=== PATIENT | female | born 1990 | race Two or more races ===

== ENCOUNTER 2024-07-26 09:09 | Outpatient (RCR) | payer MEDICAID, SELFPAY ==
--- NOTE | 2024-06-28 09:24 | XR_ITS ---
Examination: Biophysical profile, ultrasound Date and time of exam: June 28, 2024 0947 hours INDICATIONS: Diagnosis advanced maternal age Technique: Multiple transabdominal sonographic images of the pelvis abdomen obtained. Attention is directed to the breathing movement, gross body movement, amniotic fluid volume and tone. Findings: Amniotic fluid index 8.4 cm Total biophysical profile is 8 of 8. breathing movement is 2. Gross body movement is 2. tone is 2. Qualitative amniotic fluid volume is 2 Impression: Biophysical profile is 8 of 8.
[2024-06-28 10:11] VITALS: BP 123/65; PULSE 68; RESP 16; TEMP 36.7
--- NOTE | 2024-07-05 09:21 | XR_ITS ---
Examination: Biophysical profile, ultrasound Date and time of exam: July 05, 2024 0925 hrs. Indications: Diagnosis advanced maternal age Technique: Multiple transabdominal sonographic images of the pelvis abdomen obtained. Attention is directed to the breathing movement, gross body movement, amniotic fluid volume and tone. Findings: Amniotic fluid index 12.9 cm Total biophysical profile is 8 of 8. breathing movement is 2. Gross body movement is 2. tone is 2. Qualitative amniotic fluid volume is 2 Impression: Biophysical profile is 8 of 8.
[2024-07-05 09:53] VITALS: BP 103/76; PULSE 90; RESP 16; TEMP 37.1
--- NOTE | 2024-07-12 09:14 | XR_ITS ---
Examination: Biophysical profile, ultrasound Date and time of exam: July 12, 2024 0951 hours INDICATIONS: Diagnosis advanced maternal age Technique: Multiple transabdominal sonographic images of the pelvis abdomen obtained. Attention is directed to the breathing movement, gross body movement, amniotic fluid volume and tone. Findings: Amniotic fluid index 11.2 cm Total biophysical profile is 8 of 8. breathing movement is 2. Gross body movement is 2. tone is 2. Qualitative amniotic fluid volume is 2 Impression: Biophysical profile is 8 of 8.
[2024-07-12 10:09] VITALS: BP 104/59; PULSE 69; RESP 16; TEMP 36.8
--- NOTE | 2024-07-19 09:20 | XR_ITS ---
Examination: Biophysical profile, ultrasound Date and time of exam: July 19, 2024 0931 hours INDICATIONS: Advanced maternal age diagnosis Technique: Multiple transabdominal sonographic images of the pelvis abdomen obtained. Attention is directed to the breathing movement, gross body movement, amniotic fluid volume and tone. Findings: Amniotic fluid index 8.4 cm Total biophysical profile is 8 of 8. breathing movement is 2. Gross body movement is 2. tone is 2. Qualitative amniotic fluid volume is 2 Impression: Biophysical profile is 8 of 8.
[2024-07-19 09:50] VITALS: BP 112/64; PULSE 74; RESP 16; TEMP 37
--- NOTE | 2024-07-26 09:14 | XR_ITS ---
Examination: Biophysical profile, ultrasound Date and time of exam: July 26, 2024 0919 hours INDICATIONS: Diagnosis advanced maternal age Technique: Multiple transabdominal sonographic images of the pelvis abdomen obtained. Attention is directed to the breathing movement, gross body movement, amniotic fluid volume and tone. Findings: Amniotic fluid index 9.6 cm Total biophysical profile is 8 of 8. breathing movement is 2. Gross body movement is 2. tone is 2. Qualitative amniotic fluid volume is 2 Impression: Biophysical profile is 8 of 8.
[2024-07-26 09:47] VITALS: BP 109/67; PULSE 88; RESP 16; TEMP 36.5
== END 2024-07-26 23:59 | disposition home or self-care (01) ==
LOC: S4S1 09:09
PROVIDERS: PCP Family Medicine; Referring Provider Nurse Practitioner Women's Health; Visit Provider Nurse Practitioner Women's Health
DX: O09.523 Supervision of elderly multigravida, third trimester (principal); Z3A.38 38 weeks gestation of pregnancy
CPT/HCPCS: 59025; 76819

== ENCOUNTER 2024-07-31 06:23 | Inpatient (IN) | payer MEDICAID, SELFPAY ==
[2024-07-31] VITALS (104 sets, daily range): BP systolic 101–164; BP diastolic 51–86; PULSE 60–121; RESP 17–99; TEMP 36.6–36.9; O2SAT 89–100; BMI 43.0
[2024-07-31 07:10] LABS: ROM Kit Lot # 57807112; ROM Swab Mixed By: PC; Rupture of Fetal Membranes Positive (Negative); Swb Mxed in Solvent 1 min? Yes
[2024-07-31 09:28] LABS: Basophils % (Auto) 1 % (0-2.5); Eosinophils # (Auto) 0.2 Thou/mm3 (0.0-0.5); Eosinophils % (Auto) 2 % (0-10); Hematocrit 35.6 % (36.0-46.0); Hemoglobin 11.9 g/dL (12.0-16.0); Immature Granulocytes % (Auto) 0 % (0-0); Immature Granulocytes Auto 0.02 Thou/mm3 (0.00-0.00); Lymphocytes # (Auto) 2.3 Thou/mm3 (1.0-4.8); Lymphocytes % (Auto) 28 % (10-50); Mean Corpuscular HGB Conc 33.4 g/dl (31.0-37.0); Mean Corpuscular Hemoglobin 30.8 pg (25.0-35.0); Mean Corpuscular Volume 92 fL (80-100); Monocytes # (Auto) 0.4 Thou/mm3 (0.0-0.8); Monocytes % (Auto) 5 % (0-12); Neutrophils # (Auto) 5.3 Thou/mm3 (1.8-7.7); Neutrophils % (Auto) 64 % (37-80); Nucleated Red Blood Cell % 0 /100 WBC (0); Platelet Count 148 Thou/mm3 (140-440); RDW Standard Deviation 46.5 fL (36.4-46.3); Red Blood Count 3.86 Miln/mm3 (4.00-5.20); White Blood Count 8.2 Thou/mm3 (3.6-11.0)
[2024-07-31] MEDS: RINGERS LACTATED 1000 ML 1,000 ML 100 ML IV ×4 (10:02→17:12)
[2024-07-31 10:07] LABS: Syphilis Nonreactive (Nonreactive)
[2024-07-31] MEDS: MISOPROSTOL 50 mCg TABLET PO (11:05)
--- NOTE | 2024-07-31 12:05 | ESHP_ITS ---
Documentation for date of: 07/31/24 OB Labor/Induct. HPI History of Present Illness Chief complaint: Patient ruptured her membranes at 6 AM today : 3 Para: 1 Term pregnancies: 1 pregnancies: 0 Living children: 1 History of Abortions: Spontaneous and Elective: 1 History of Vaginal deliveries: 1 History of sections: No History of : No Date of last menstrual period: 11/01/23 ALEJANDRO: 08/07/24 Gestational Age (weeks): 39 Gestational Age (days): 0 Gestational age based on last menstrual period: 39 History of present illness: Patient is a 34-year-old -0-1-1 at 39 weeks who presents with ruptured membranes at 6 in the morning clear fluid. Patient is 3 cm dilated 50-2 posterior care is up-to-date on the chart with [facility]. History of Present Dating criteria: LMP confirmed by 1st trimester US Adequate Care: Yes Ultrasounds: normal mid trimester US Obstetrical complications: none Medical complications: other (Maternal morbid obesity with a BMI of 43) Labs Maternal Blood Type: A Pos Labs: Positive: Rubella Titre and Negative: RPR, Hepatitis B, HIV, Chlamydia, Gonorrhea and Group Beta Strep Review of Systems Review of Systems Narrative Review of Systems: Patient reports we are liquid ruptured at 6 AM today no bleeding good movement no regular uterine contractions Past Medical History Surgical History SURGICAL: Negative Section Meds Home Medications and Allergies Home Medications ?Medication ?Instructions ?Recorded ?Confirmed ?Type vit no.95-ferrous 1 tab PO QDAY 12/26/23 05/0 07/22 History fumarate 28 mg-folic acid 800 mcg tablet () ferrous sulfate 325 mg (65 mg mg 07/31/24 History iron) tablet Allergies Allergy/AdvReac Type Severity Reaction Status Date / Time No Known Allergies Allergy Verified 07/31/24 06:34 OB Exam Physical Exam Vital signs: Temp Pulse Resp BP Pulse Ox 98.4 F 64 18 133/66 H 99 07/31/24 06:47 07/31/24 11:56 07/31/24 06:47 07/31/24 11:56 07/31/24 06:47 Routine Abdominal Exam Abdominal: Present soft Comments: Obese. 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 Cytotec p.o. induction. Patient declined internals. She declined Pitocin until she has epidural. She declines an FSE until she gets an epidural. (3) Full-term premature rupture of membranes Qualifiers: PROM onset of labor timing: onset of labor within 24 hours of rupture Q ualified Code(s): O42.02 - Full-term premature rupture of membranes, onset of labor within 24 hours of rupture
[2024-07-31 14:41] LABS: Amphetamine/Metham Scrn,Ur OB Negative (Negative); Benzoylecgonine Screen, Ur OB Negative (Negative); Opiate Screen,Urine OB Negative (Negative); THC Screen,Urine OB Negative (Negative)
[2024-07-31] MEDS: OXYTOCIN in NS 30 units 30 UNIT/500 ML BAG IV (15:48)
[2024-07-31] MEDS: LIDOCAINE HCL 1% 20 ML VIAL INFL (19:11)
[2024-07-31] MEDS: OXYTOCIN in NS 20 units 20 UNIT/1,000 ML BAG 125 UNIT IV (19:37)
[2024-07-31] MEDS: BENZO/LANO/ALOE (Dermoplast) 60 GM CAN 1 SPRAY TOP (19:38)
--- NOTE | 2024-07-31 19:46 | OBDSUM_ITS ---
Data (Marquez) Data Hx Section: No Maternal Blood Type: A Pos Rubella Titre: Positive RPR: Non-reactive Labs: Negative: RPR, Hepatitis B, HIV, Chlamydia, Gonorrhea and Group Beta Strep : 3 Term: 1 : 0 Livin Abortions: Spontaneous & Theraputic: 1 Delivery Data (Mraquez) Labor Data Initiation of labor: Spontaneous Induction/Augmentation Agent: Cytotec-PO (50 mcg x 2 orally followed by low-dose Pitocin up to 2 milliunits/min) and Pitocin ROM date: 07/31/24 ROM time: 06:10 Amniotic membrane rupture type: Spontaneous Amniotic fluid description: Clear Delivery Data EDC: 08/07/24 EDC calculated by:: LMP/early US confirmation Date of arrival to unit: 07/31/24 Time of arrival to unit: 07:30 Onset of labor date: 07/31/24 Onset of labor time: 12:00 Complete dilation date: 07/31/24 Complete dilation time: 19:03 delivery date: 07/31/24 delivery time: 19:09 Gestational age (weeks): 39 Gestational age (days): 0 Placenta delivery date: 07/31/24 Placenta delivery time: 19:19 Stage 1 total time: Labor - Stage 1 Duration 7 hours and 3 minutes Length stage 2 (minutes): 10 Length stage 3 (minutes): 10 Delivered by: Adry Paz ([facility]) Delivery nurse: Sancho Hernadnez RN [place] nurse: Debi Galarza RN Exceptional Student Education Teacher at delivery: No Support person(s) at delivery: spouse Delivery Method Delivery: Vaginal Presentation: Vertex Position: OA Anesthesia Type Primary Anesthesia: Epidural Secondary Anesthesia: Not Applicable (Local lidocaine for repair) Delivery Room Medications Other Intrapartum Medications: No Post Delivery Medications N/A: No Placenta Placenta Delivery: Spontaneous Placenta Cultures Obtained: No Placenta Sent for Examination: No Cord Sample: Cord Blood Obtained Episiotomy Episiotomy: None Lacerations #1: Perineal: 1st degree Perineal repair Sutures used for repair: other (2-0 chromic) EBL Estimated blood loss (ml): 100 Umbilical Cord Placenta/Cord Complication: Other (Short umbilical cord) Umbilical Vessels: 3 Nuchal Cord: None Body Cord: None Additional Procedures The patient is a 34-year-old -0-1-1 all care uncomplicated with [facility] who presented to labor and delivery around 7:30 in the morning 07/31/2024 with ruptured membranes. She stated she ruptured her bag of water, clear fluid at 6 AM that morning. She was admitted. She was 3 cm dilated 50% effaced -2 station. Patient wanted an epidural placed before she got any augmentation and had an epidural placed and then had 50 mcg of Cytotec placed x 2 and went into kick into labor. She had some decelerations during the day had an IUPC placed and an amnioinfusion. She went on to progress to complete by about 7:00 PM and pushed about 10 minutes delivering a liveborn male at 7:09 PM. Findings liveborn male in the JENNIFER presentation with no nuchal cord or meconium the umbilical cord however was quite short. Apgars were 8 and 9 weight was 7 pounds 6 ounces. The placenta was complete spontaneous grossly normal delivering approximately 10 minutes after the baby delivered. Patient had a first-degree perineal laceration repaired in a standard fashion using 2-0 chromic. Complications were none. Condition both mom and were in stable condition in the delivery room. EBL was 100 cc Complications Complications: None Data (Marquez) Data order: 1 's gender: Male weight (gms): 3335 g Weight (pounds): 7 lbs and 5.6 ozs K[place]al length: 46.36 cm 1 minute: 8 5 minutes: 9
[2024-07-31] MEDS: IBUPROFEN TAB 400 MG TABLET 800 MG PO (20:15)
[2024-08-01] VITALS (7 sets, daily range): BP systolic 106–135; BP diastolic 65–87; PULSE 82; RESP 17–18; TEMP 36.3–36.8; O2SAT 97–98
[2024-08-01 02:07] LABS: Basophils % (Auto) 0 % (0-2.5); Eosinophils % (Auto) 0 % (0-10); Hematocrit 25.9 % (36.0-46.0); Immature Granulocytes % (Auto) 1 % (0-0); Immature Granulocytes Auto 0.07 Thou/mm3 (0.00-0.00); Lymphocytes # (Auto) 1.6 Thou/mm3 (1.0-4.8); Lymphocytes % (Auto) 13 % (10-50); Mean Corpuscular HGB Conc 34.7 g/dl (31.0-37.0); Mean Corpuscular Hemoglobin 30.6 pg (25.0-35.0); Mean Corpuscular Volume 88 fL (80-100); Monocytes # (Auto) 0.7 Thou/mm3 (0.0-0.8); Monocytes % (Auto) 6 % (0-12); Neutrophils # (Auto) 10.3 Thou/mm3 (1.8-7.7); Neutrophils % (Auto) 81 % (37-80); Nucleated Red Blood Cell % 0 /100 WBC (0); Platelet Count 124 Thou/mm3 (140-440); RDW Standard Deviation 43.2 fL (36.4-46.3); Red Blood Count 2.94 Miln/mm3 (4.00-5.20); White Blood Count 12.7 Thou/mm3 (3.6-11.0)
[2024-08-01] MEDS: IBUPROFEN TAB 400 MG TABLET 800 MG PO ×2 (07:50→19:49)
--- NOTE | 2024-08-01 09:41 | ESDS_ITS ---
DS: Providers Provider Date of admission: 07/31/24 07:48 Primary care physician: Lauro Caicedo MD Admitting Provider: Rupinder Lockwood CNM Attending Provider on Admission: Adry Paz MD ([facility]) Consults: 07/31/24 19:44 Referral Routine Comment: Attending Provider on DC: Rupinder Lockwood CNM Discharging Provider: Rupinder Lockwood CNM Anticipated date of discharge: 08/01/24 DS: Diagnosis Discharge Diagnosis (1) Normal spontaneous vaginal delivery: Status: Acute (2) Encounter for care of lactating mother: Status: Acute (3) Supervision of high risk in third trimester: Status: Acute Problem List Completed Was Problem List Reviewed/Reconciled?: Yes Summary/Hosp Course Brief History: Patient is a 34-year-old -0-1-1 at 39 weeks who presents with ruptured membranes at 6 in the morning clear fluid. Patient is 3 cm dilated 50-2 posterior care is up-to-date on the chart with [facility]. 07/31/24: The patient is a 34-year-old -0-1-1 all care uncomplicated with [facility] who presented to labor and delivery around 7:30 in the morning 07/31/2024 with ruptured membranes. She stated she ruptured her bag of water, clear fluid at 6 AM that morning. She was admitted. She was 3 cm dilated 50% effaced -2 station. Patient wanted an epidural placed before she got any augmentation and had an epidural placed and then had 50 mcg of Cytotec placed x 2 and went into kick into labor. She had some decelerations during the day had an IUPC placed and an amnioinfusion. She went on to progress to complete by about 7:00 PM and pushed about 10 minutes delivering a liveborn male at 7:09 PM. Findings liveborn male in the JENNIFER presentation with no nuchal cord or meconium the umbilical cord however was quite short. Apgars were 8 and 9 weight was 7 pounds 6 ounces. The placenta was complete spontaneous grossly normal delivering approximately 10 minutes after the baby delivered. Patient had a first-degree perineal laceration repaired in a standard fashion using 2-0 chromic. Complications were none. Condition both mom and infant were in stable condition in the delivery room. EBL was 100 cc 5/5/25: day 1. Patient is stable and afebrile doing well. Denies dizziness shortness of breath. Ambulating to the bathroom. Passing gas. No bowel movement yet. Breast-feeding infant. Complains of some cramping. Discharge instructions given. Patient to follow-up with Rupinder Lockwood CNM in 3 weeks Peripartum Data Delivery Method: Normal Vaginal Delivery Episiotomy Description: None Laceration Description: yes and see Delivery Summary complications: none [place] 1: Gender: Male Disposition of : home Status at Discharge Cognitive/behavioral status at discharge: Alert and oriented x 3 Functional status at discharge: independent ambulation Overall status at discharge: patient is progressing back to baseline Time Spent with Patient Time attestation: Total time spent providing and/or coordinating discharge services: Time spent: Greater than 30 minutes Exam Vital Signs Temp Pulse Resp BP Pulse Ox O2 Del Method 98.2 F 70 17 135/87 H 97 Room Air 08/01/24 07:34 07/31/24 21:18 08/01/24 07:34 08/01/24 07:34 08/01/24 07:34 08/01/24 07:34 Constitutional Constitutional: no acute distress Routine HEENT Exam Head: Present normocephalic and atraumatic Eye: Present EOMI, PERRL and normal accommodation ENT: Present mucous membranes moist Routine Neck Exam Neck: Present full ROM Routine Respiratory Exam Respiratory: Present chest non-tender, lungs clear, normal breath sounds and no resp distress Routine Cardiovascular Exam Cardiovascular: Present RRR Routine Abdominal Exam Abdominal: Present soft and normoactive bowel sounds; Absent tenderness or distended Comments: Uterus nontender Fundus firm Routine Exam Patient deferred: external exam Routine Extremities Exam Extremities: Present full ROM, pulses intact and normal capillary refill; Absent calf tenderness or tenderness Routine Back/Spine/Pelvis Exam Back/Spine: Present full ROM Routine Skin Exam Skin: Present intact, dry and warm Routine Neurological Exam Neurological: Present alert, oriented X3 and CN II-XII intact Routine Psychiatric Exam Psychiatric: Present normal affect and normal thought process Discharge Plan Plan Patient Disposition: HOME (Self Care) Patient condition on transfer: Stable Prescriptions/Referrals Prescriptions/Med Rec: New ibuprofen 800 mg tablet 800 mg PO Q6H MDD 4 PRN (Reason: pain) Qty: 90 0RF docusate sodium [Colace] 100 mg capsule 100 mg PO BID Qty: 60 0RF lanolin 50 % ointment 1 applic topical TID PRN (Reason: skin irritation) Qty: 15 0RF Continued pantoprazole [Protonix] 40 mg tablet,delayed release (DR/EC) 40 mg PO QDAY Qty: 14 0RF PNV cmb#95-ferrous fumarate-FA [] 28 mg iron- 800 mcg tablet 1 tab PO QDAY Patient Comments: TAKE 1 TABLET BY MOUTH EVERY DAY ferrous sulfate 325 mg (65 mg iron) tablet Patient Comments: TAKE 1 TABLET BY MOUTH 2 TIMES A DAY Referrals: Lauro Caicedo MD [Primary Care Provider] - Patient/Caregiver Discharge Instructions Meds to Beds: No Discharge Activity: activity as tolerated Other Discharge Activity Instructions:: Follow-up with Rupinder Lockwood CNM in 3 weeks Education Materials: After a Vaginal , : Caring for Yourself Print Language: Luxembourgish Stand Alone Forms: Yelena Award Info., Patient Portal Info Letter Discharge Order Discharge Orders: Discharge (Routine); Ordered 08/01/24 Ordered By: Rupinder Lockwood Planned Discharge Date 08/01/24
== END 2024-08-01 22:08 | disposition home or self-care (01) | DRG 560 ==
LOC: S4SX 08:09 → S4NX 21:53
PROVIDERS: Admitting Provider Nurse Practitioner Women's Health; PCP Family Medicine; Visit Provider Obstetrics & Gynecology
DX: O42.02 Full-term premature rupture of membranes, onset of labor within 24 hours of rupture (principal); O69.3XX0 Labor and delivery complicated by short cord, not applicable or unspecified; O70.0 First degree perineal laceration during delivery; O99.214 Obesity complicating childbirth; Z37.0 Single live birth; E66.01 Morbid (severe) obesity due to excess calories; Z3A.39 39 weeks gestation of pregnancy
CPT/HCPCS: 36415; 59025; 59409; 80307; 84112; 85025; 86780; 86850; 86900; 86901; J2175; J2590; J2795; J3010; J3490; J7120; A9270

== ENCOUNTER 2024-10-23 10:54 | Emergency (ER) | payer MEDICAID, SELFPAY ==
[2024-10-23 10:56] VITALS: BMI 37.0
--- NOTE | 2024-10-23 11:01 | EKG_ITS ---
[facility] Test Date: 2024-10-23 Pat Name: QUAN REYES Department: Room: - Gender: Female Repeat Chief: : 1990 Requested By: Soni Syed Order Number: [id number] Reading MD: Soni Syed Measurements Intervals [place] Rate: 72 P: 45 SC: 146 QRS: 23 QRSD: 82 T: 31 QT: 364 QTc: 399 Interpretive Statements SINUS RHYTHM LOW QRS VOLTAGE IN PRECORDIAL LEADS [QRS DEFLECTION < 1.0 mV IN CHEST LEADS] Compared to ECG 02/13/2023 14:56:58 No significant changes /store/S0/[id number].pdf
--- NOTE | 2024-10-23 11:02 | EDNOTE_ITS ---
ED Back Injury Pain RME/HPI General Chief Complaint: Back Pain/Injury Stated Complaint: PAIN IN MIDDLE UPPER BACK X3 DAYS Time Seen by Provider: 10/23/24 10:58 Source: patient Arrival date/time: 10/23/24 10:54 Limitations: no limitations RME / HPI RME / HPI Narrative: 34-year-old female with a history of anxiety is here today with a 5-day history of low back ache. She denies any injuries. She has no changes in her gait. She denies any abdominal pain, nausea, vomiting. She has no rectal paresthesias. She has no changes in urination or bowel movements. She states she went to see her primary doctor for this, she was prescribed Robaxin, but she is wondering if it is making her anxiety worse. She has no other acute complaints or concerns. Related Data Home Medications ?Medication ?Instructions ?Recorded ?Confirmed vit no.95-ferrous 1 tab PO QDAY 12/26/23 05/0 07/22 fumarate 28 mg-folic acid 800 mcg tablet () ferrous sulfate 325 mg (65 mg mg 07/31/24 iron) tablet Previous Rx's ?Medication ?Instructions ?Recorded pantoprazole 40 mg tablet,delayed 40 mg PO QDAY #14 ta bs 02/13/23 release (Protonix) docusate sodium 100 mg capsule 100 mg PO BID #60 caps 08/01/24 (Colace) ibuprofen 800 mg tablet 800 mg PO Q6H PRN pain #90 t abs 08/01/24 lanolin 50 % topical ointment 1 applic topical TID PRN skin 08/01/24 irritation #15 tubes Allergies Allergy/AdvReac Type Severity Reaction Status Date / Time No Known Allergies Allergy Verified 10/23/24 11:00 Review of Systems Review of Systems Systems Reviewed: All systems reviewed, normal except as documented ED Exam General Limitations: Present no limitations General appearance: Present alert and anxious Head Head exam: Present atraumatic Eye Eye exam: Present normal appearance, PERRL and EOMI ENT ENT exam: Present normal exam, normal oropharynx and mucous membranes moist Neck Neck exam: Present normal inspection, full ROM and trachea midline Chest Chest inspection: Present normal inspection and symmetric chest wall rise Respiratory Respiratory exam: Absent respiratory distress, accessory muscle use or prolonged expiratory phase Cardiovascular Cardiovascular exam: Present regular rate and normal rhythm Abdominal Exam Abdominal exam: Present soft; Absent distention or guarding Extremities Exam Extremities exam: Present normal inspection and full ROM Back Exam Back exam: Present normal inspection and full ROM Neurological Exam Neurological exam: Present alert and oriented X3 Psychiatric Psychiatric exam: Present normal affect and normal mood Skin Skin exam: Present warm, dry, intact and normal color Course Quality Measures none Orders Category Date Time Status EKG (ED ONLY) *Do not use* NOW Care 10/23/24 11:01 Completed EKG (ED Only) Stat Exams 10/23/24 11:01 Draft CBC Stat Lab 10/23/24 11:15 Completed CMP [Comprehensive Metabolic Panel] Stat Lab 10/23/24 11:15 Completed HCG,Qualitative Serum Stat Lab 10/23/24 11:15 Completed UA, C/S IF [Urinalysis, C/S if Indicated] Stat Lab 10/23/24 11:00 Completed Vital Signs Vital signs: Vital Signs Temperature 98.6 F 10/23/24 11:14 Pulse Rate 76 10/23/24 11:14 Respiratory Rate 18 10/23/24 11:14 Blood Pressure 142/70 H 10/23/24 11:14 Pulse Oximetry (%) 97 10/23/24 11:14 Oxygen Delivery Method Room Air 10/23/24 11:14 Back Pain / Injury MDM Narrative MDM Narrative:: 34-year-old female with a history of anxiety is here today with a 5-day history of low back ache. She denies any injuries. She has no changes in her gait. She denies any abdominal pain, nausea, vomiting. She has no rectal paresthesias. She has no changes in urination or bowel movements. She states she went to see her primary doctor for this, she was prescribed Robaxin, but she is wondering if it is making her anxiety worse. She has no other acute complaints or concerns. On exam, patient is anxious appearing. She is self ambulating with a stable gait. She has no assistance with walking. She wonders about kidney function. She is on her menstrual cycle. Her CBC, metabolic panel, are unremarkable. Urinalysis reveals hematuria this consistent with her menses. This was discussed in detail with her. She will continue her current therapies. Follow- up with her doctor as needed. Return for any worsening or emergent changes. Patient data External records reviewed:: None Clinical information provided by:: patient Social determinants that could affect healthcare access:: none Patient has the following chronic illnesses:: Anxiety How is presenting disease/condition affected by chronic disease/condition?: uneffected by Evaluation data The following diagnostics were reviewed and interpreted by me:: lab results Lab and/or radiology exams considered but not ordered:: n/a Interpretation Summary: Hematuria secondary to her menstrual cycle Medications / Prescriptions Medications or Prescriptions considered but not ordered:: n/a Medication administrations:: n/a Consultations Consultation(s) initiated? (list below): No Diagnosis Differential diagnosis back pain/injury: strain of lumbar region, pyelonephritis and thoracic back pain Most likely diagnosis given after review of the tests above:: Lumbago Admission Indicated Admission indicated?: not indicated Admission Request Was there a request for admission?: No Disposition Plan Disposition Plan: Discharge Discharge Attestation Discharge Attestation: The patient and all family members were given an opportunity to ask questions and understood the discharge instructions. Discharge instructions specifically effects, indications for sooner follow up or return to the emergency department, and the expected course of current diagnosis. Patient condition: Stable Discharge Plan Plan Patient Disposition: HOME (Self Care) Patient condition on transfer: Stable Prescriptions/Referrals Prescriptions/Med Rec: No Action pantoprazole [Protonix] 40 mg tablet,delayed release (DR/EC) 40 mg PO QDAY Qty: 14 0RF PNV no.95-ferrous fumarate-FA [] 28 mg iron- 800 mcg tablet 1 tab PO QDAY Patient Comments: TAKE 1 TABLET BY MOUTH EVERY DAY ferrous sulfate 325 mg (65 mg iron) tablet Patient Comments: TAKE 1 TABLET BY MOUTH 2 TIMES A DAY ibuprofen 800 mg tablet 800 mg PO Q6H MDD 4 PRN (Reason: pain) Qty: 90 0RF docusate sodium [Colace] 100 mg capsule 100 mg PO BID Qty: 60 0RF lanolin 50 % ointment 1 applic topical TID PRN (Reason: skin irritation) Qty: 15 0RF Referrals: Lauro Caicedo MD [Primary Care Provider] - In 1 week Problem List Clinical Impression: Lumbago Patient/Caregiver Discharge Instructions Education Materials: ED Back Care Tips Additional Instructions: - Continue your current therapies. Contact your primary doctor to schedule close follow-up appointment. - Return to the emergency room for any fevers, changes in your gait, changes and bowel moods or urination, or rectal paresthesias. Print Language: [place] Stand Alone Forms: Yelena Award Info., Patient Portal Info Letter
[2024-10-23 11:14] VITALS: BP 142/70; PULSE 76; RESP 18; TEMP 37; O2SAT 97
[2024-10-23 11:38] LABS: Collection Type, Urine Voided
[2024-10-23 11:39] LABS: Basophils # (Auto) 0.0 Thou/mm3 (0.0-0.2); Basophils % (Auto) 0 % (0-2.5); Eosinophils # (Auto) 0.2 Thou/mm3 (0.0-0.5); Eosinophils % (Auto) 3 % (0-10); Hematocrit 37.6 % (36.0-46.0); Hemoglobin 11.6 g/dL (12.0-16.0); Immature Granulocytes Auto 0.02 Thou/mm3 (0.00-0.00); Lymphocytes # (Auto) 1.9 Thou/mm3 (1.0-4.8); Lymphocytes % (Auto) 28 % (10-50); Mean Corpuscular HGB Conc 30.9 g/dl (31.0-37.0); Mean Corpuscular Hemoglobin 26.5 pg (25.0-35.0); Mean Corpuscular Volume 86 fL (80-100); Monocytes # (Auto) 0.4 Thou/mm3 (0.0-0.8); Monocytes % (Auto) 5 % (0-12); Neutrophils # (Auto) 4.4 Thou/mm3 (1.8-7.7); Neutrophils % (Auto) 64 % (37-80); Nucleated Red Blood Cell # 0.00 Thou/mm3 (0.00-0.00); Nucleated Red Blood Cell % 0 /100 WBC (0); Platelet Count 226 Thou/mm3 (140-440); RDW Standard Deviation 40.3 fL (36.4-46.3); Red Blood Count 4.37 Miln/mm3 (4.00-5.20); White Blood Count 6.9 Thou/mm3 (3.6-11.0)
[2024-10-23 11:50] LABS: Alanine Aminotransferase 14 U/L (10-49); Albumin, Serum 4.4 gm/dL (3.5-5.0); Albumin/Globulin Ratio 1.7 (1.2-2.2); Alkaline Phosphatase 114 U/L (46-116); Anion Gap 9 (7-16); Aspartate Amino Transferase 17 U/L (0-34); BUN/Creatinine Ratio 11 Ratio (12-20); Bilirubin,Total 0.4 mg/dL (0.3-1.2); Blood Urea Nitrogen 11 mg/dL (9-23); Calcium 9.1 mg/dL (8.3-10.6); Calcium (Corrected) 9.1 mg/dL (8.5-10.1); Carbon Dioxide 26.2 mMol/L (20.0-31.0); Chloride 108 mMol/L (98-107); Creatinine (Component) 1.0 mg/dL (0.6-1.3); Estimated Creatinine Clearance 76.6 mL/min (>60); Globulin 2.6 gm/dL (2.3-3.5); Glucose 104 mg/dL (74-106); Osmolality,Calculated 284 (275-295); Potassium 3.7 mMol/L (3.4-5.1); Sodium 143 mMol/L (136-145); Total Protein 7.0 gm/dL (5.7-8.2); eGFR > 60 See Note
[2024-10-23 11:51] LABS: HCG,Qualitative Serum Negative
[2024-10-23 12:22] LABS: Bilirubin,Urine Negative (Negative); Blood,Urine 3+ (Negative); Clarity,Urine Turbid (Clear/Hazy); Color,Urine Yellow (Lt Yel-Yel); Culture Indicated,Urine Not Indicated; Glucose, Urine Negative (Negative); Ketones,Urine Negative (Negative); Leukocyte Esterase,Urine Positive (Negative); Nitrite,Urine Negative (Negative); PH,Urine 5.5 (5.0-7.0); Protein,Urine Trace (Neg - Trace); RBC,Urine 1829 /hpf (0-3); Specific Gravity,Urine 1.025 (1.001-1.035); Squamous Epithelial Cell,Urine 1 /hpf (0-5); Urobilinogen,Urine Negative mg/dL (0.0-1.0); WBC,Urine 5 /hpf (0-5)
== END 2024-10-23 13:20 | disposition home or self-care (01) ==
PROVIDERS: Physician Assistant Medical; Emergency Provider Emergency Medicine; PCP Family Medicine
DX: M54.50 Low back pain, unspecified (principal); R31.9 Hematuria, unspecified
CPT/HCPCS: 36415; 80053; 81001; 84703; 85025; 93005; 99283